=== PATIENT | female | born 1970 | race Native Hawaiian/Other Pacific Islander ===

== ENCOUNTER 2019-02-18 14:27 | Outpatient (CLI) | payer OTHER | END 2019-02-18 19:59 | disposition home or self-care (01) | LOC: MAMMO 14:27 | DX: Z12.31 Encounter for screening mammogram for malignant neoplasm of breast (principal) ==

== ENCOUNTER 2019-02-24 14:17 | Outpatient (CLI) | payer OTHER | END 2019-02-24 20:16 | disposition home or self-care (01) | LOC: MAMMO 14:17 | DX: N64.59 Other signs and symptoms in breast (principal) ==

== ENCOUNTER 2020-07-25 14:43 | Outpatient (CLI) | payer OTHER | END 2020-07-25 21:07 | disposition home or self-care (01) | LOC: US 14:43 | PROVIDERS: ATTEND Internal Medicine | DX: R10.30 Lower abdominal pain, unspecified (principal); R10.2 Pelvic and perineal pain ==

== ENCOUNTER 2020-09-19 08:36 | Outpatient (CLI) | payer OTHER | END 2020-09-19 19:19 | disposition home or self-care (01) | LOC: CT 08:36 | PROVIDERS: ATTEND Internal Medicine Gastroenterology | DX: R10.31 Right lower quadrant pain (principal) | CPT/HCPCS: Q9963 ==

== ENCOUNTER 2021-05-10 11:27 | Outpatient (CLI) | payer OTHER | END 2021-05-10 21:22 | disposition home or self-care (01) | LOC: US 11:27 | PROVIDERS: ATTEND Internal Medicine | DX: E03.8 Other specified hypothyroidism (principal); R13.19 Other dysphagia ==

== ENCOUNTER 2021-07-20 10:12 | Outpatient (CLI) | payer OTHER | END 2021-07-20 20:59 | disposition home or self-care (01) | LOC: MAMMO 10:12 | PROVIDERS: ATTEND Internal Medicine | DX: Z12.31 Encounter for screening mammogram for malignant neoplasm of breast (principal) ==

== ENCOUNTER 2022-11-26 14:04 | Outpatient (CLI) | payer OTHER | END 2022-11-26 20:54 | disposition home or self-care (01) | LOC: MAMMO 14:04 | PROVIDERS: ATTEND Nurse Practitioner Family | DX: Z12.31 Encounter for screening mammogram for malignant neoplasm of breast (principal) ==